=== PATIENT | female | born 1935 | race Caucasian/White ===

== ENCOUNTER → 2017-08-16 | Outpatient (CLI) | payer OTHER | LOC: BMCIMAGING 16:05 | PROVIDERS: ATTEND Family Medicine | DX: Z13.89 Encounter for screening for other disorder (principal); G89.28 Other chronic postprocedural pain; Z86.711 Personal history of pulmonary embolism ==

== ENCOUNTER 2017-08-24 01:31 | Observation (INO) | payer OTHER ==
[2017-08-24] MEDS ORDERED: NS 500 ML IV ONE (01:48)
[2017-08-24] MEDS ORDERED: NITROGLYCERIN 0.4 MG BTL SL PRN ×2 (01:48→04:33)
[2017-08-24] MEDS ORDERED: ASPIRIN 81 MG CHEWABLE TAB PO ONE ×2 (01:48→01:50)
--- NOTE | 2017-08-24 01:48 | EDPHY ---
H & P Stated Complaint: chest pressure, sob Time Seen by Provider: 08/24/17 01:48 HPI/ROS: HPI CHIEF COMPLAINT: Chest pressure HISTORY OF PRESENT ILLNESS: 82-year-old female, history of hypertension, hyperlipidemia, obesity, history of a PE, presents emergency room with chest pressure. Patient states around 9:00 p.m. Last night she developed chest pressure. Describes a discomfort in her chest as pressure. Denies any radiation of pain denies arm or jaw pain, denies neck pain or back pain. She does state she has some associated shortness of breath with this. She is visiting her daughter here in [place] from [place]. She arrives by private vehicle stating she does have 4/10 chest pressure substernal. Nonradiating. Denies pleuritic pain or hemoptysis. Past Medical History: Hypertension, hyperlipidemia, diabetes, PE, UTI, obesity , carotid disease, oxygen at night Past Surgical History: Carotid endarterectomy Social History: Lives in [place] denies daily use of drugs alcohol tobacco Family History: Noncontributory ROS REVIEW OF SYSTEMS: A comprehensive 10 point review of systems is otherwise negative aside from elements mentioned in the history of present illness. Exam Constitutional elderly, no acute distress, triage nursing summary reviewed, vital signs reviewed, awake/alert. Eyes normal conjunctivae and sclera, EOMI, PERRLA. HENT normal inspection, atraumatic, moist mucus membranes, no epistaxis, neck supple/ no meningismus, no raccoon eyes. Respiratory clear to auscultation bilaterally, normal breath sounds, no respiratory distress, no wheezing. Cardiovascular rate normal, regular rhythm, no murmur, no edema, distal pulses normal. Gastrointestinal soft, non-tender, no rebound, no guarding, normal bowel sounds, no distension, no pulsatile mass. Genitourinary no CVA tenderness. Musculoskeletal no midline vertebral tenderness, full range of motion, no calf swelling, no tenderness of extremities, no meningismus, good pulses, neurovascularly intact. Skin pink, warm, & dry, no rash, skin atraumatic. Neurologic awake, alert and oriented x 3, AAOx3, moves all 4 extremities equally, motor intact, sensory intact, CN II-XII intact, normal cerebellar, normal vision, normal speech. Psychiatric normal mood/affect. Heme/Lymph/Immune no lymphadenopathy. Differential diagnosis includes but is not limited to: ACS, atypical chest pain , pneumothorax, pneumonia, pulmonary embolism, aortic dissection, congestive heart failure, tumor, musculoskeletal pain, esophageal pain, GERD, peptic ulcer disease, pancreatitis Medical Decision Making: Plan for this patient IV establishment with full color television console monitor obtain EKG to rule out acute coronary syndrome, full-dose aspirin, dose of nitroglycerin to see if this helps with her chest pressure, chest x-ray, D-dimer, re-evaluate. Re-evaluation: EKG interpretation by me on record in [facility] system. Impression time of EKG 1:56 a.m., this is sinus rhythm rate of 82 T-wave abnormality noted V1 V2 V3 T-wave flattening V4 V5 V6 no ST elevation no significant ST depression. 0222: Patient D-dimer elevated. In the setting of chest pain and shortness of breath will proceed with CT angiogram of the chest rule out PE. She does have a history of PE. Not on anticoagulation. CT angiogram of the chest shows no evidence of PE. Called to me by Dr. Cruz. 0258: Will admit patient to the hospital service for further evaluation of chest pain. Recommend serial enzymes. No evidence of acute coronary syndrome at this time. No evidence of PE. Additionally patient will need to work with case management about setting up home oxygen. She is post be on oxygen at night at did not bring her oxygen from [place]. She is due to stay here till September 02. Source: Patient - Medical/Surgical History Hx Diabetes: Yes Hx Cardiac Disease: Yes Other PMH: chronic pain. arthritis. PE. HTN. depression. afib. CAD. cholecystectomy - Social History Smoking Status: Former smoker Constitutional: Initial Vital Signs Temperature (C) 36.5 C 08/24/17 01:37 Heart Rate 95 08/24/17 01:37 Respiratory Rate 20 08/24/17 01:37 Blood Pressure 136/80 H 08/24/17 01:37 O2 Sat (%) 92 08/24/17 01:37 O2 (L/minute) 2 Allergies/Adverse Reactions: nystatin Allergy (Intermediate, Verified 12/02/15 16:23) Hives Sulfa (Sulfonamide Antibiotics) Allergy (Intermediate, Verified 12/02/15 16:23) Hives atenolol Allergy (Verified 08/24/17 01:37) rofecoxib [From Vioxx] Allergy (Verified 08/24/17 01:37) emycin Allergy (Intermediate, Uncoded 12/02/15 16:23) Hives zpack Allergy (Mild, Uncoded 12/02/15 16:23) gi upset Home Medications: Medication Instructions Recorded ALPRAZolam [Xanax 0.25 MG (*)] 0.25 mg PO BID 12/02/15 Glimepiride [Amaryl] 4 mg PO DAILY 12/02/15 Hydrochlorothiazide [HCTZ (*)] 25 mg PO DAILY 12/02/15 Metoclopramide [Reglan 5 mg (*)] 5 mg PO BID 12/02/15 Oxybutynin Chloride [Ditropan] 5 mg PO DAILY 12/02/15 traZODone [traZODONE 100MG (*)] 100 mg PO HS 12/02/15 ALPRAZolam [Xanax 0.5 MG (*)] 0.5 mg PO BID PRN tab 08/24/17 Aspirin [Aspirin 81mg (*)] 81 mg PO DAILY 08/24/17 C/E/Zn/Cu/OM3/DHA/EPA/LUT/ZEAX 1 each PO BID 08/24/17 [Preservision Areds 2 Softgel] Calcium Carb W/Vit D [Calcium Carb 500 mg PO DAILY 08/24/17 W/Vit D 500/200 (*)] Citalopram Hydrobromide [Celexa] 40 mg PO DAILY 08/24/17 Fluticasone Nasal [Flonase Nasal 1 sprays NASAL BID 08/24/17 [place]] Gemfibrozil [Lopid 600 MG (*)] 600 mg PO DAILY 08/24/17 Insulin Glargine [Lantus 100 8 units SC DAILY ml 08/24/17 UNITS/ML (*)] Insulin Glargine,Hum.rec.anlog 7 unit SQ HS 08/24/17 [Lantus Solostar] Lisinopril [Zestril 20 mg (*)] 20 mg PO DAILY 08/24/17 Magnesium Oxide [Magnesium Oxide 400 mg PO DAILY 08/24/17 400 mg (*)] Methocarbamol [Robaxin 750 mg (*)] 750 mg PO TID PRN 08/24/17 Multivitamins [Multivitamin (*)] 1 each PO DAILY 08/24/17 [place]-3 Fatty Acids [Fish Oil 1000 1,000 mg PO DAILY 08/24/17 mg (*)] amLODIPine BESYLATE [Norvasc 10 mg 10 mg PO DAILY 08/24/17 (*)] Medical Decision Making - Diagnostics Imaging Results: Imaging Impressions Chest/Thorax CTA 08/24/17 02:22 Impression: 1. No evidence of pulmonary embolic disease. 2. Nodule of the right lobe of the thyroid which could be followed up with thyroid ultrasound as clinically indicated. 3. Mild cardiac enlargement and coronary arterial calcifications 4. See above report for additional findings. The study was performed as an emergency on-call case and discussed by telephone with Dr. Stevens at 0300 hours. The final interpretation is concordant with the original communication. - Data Points Laboratory Results: Laboratory Results 08/24/17 01:58 08/24/17 01:58 Medications Given: Discontinued Medications Acetaminophen (Tylenol) 650 mg PO Q4HRS PRN PRN Reason: Pain, Mild/Fever, Can Take PO Stop: 02/20/18 03:32 Last Admin: 08/24/17 09:23 Dose: 650 mg Alprazolam (Xanax) 0.25 mg PO BID [facility] Stop: 02/20/18 11:29 Last Admin: 08/24/17 12:13 Dose: Not Given Amlodipine Besylate (Norvasc) 10 mg PO DAILY [facility] Stop: 02/20/18 11:29 Last Admin: 08/24/17 11:52 Dose: 10 mg Aspirin (Aspirin) 324 mg PO EDNOW ONE Stop: 08/24/17 01:49 Last Admin: 08/24/17 01:50 Dose: 324 mg Aspirin (Aspirin) 324 mg PO EDNOW ONE Stop: 08/24/17 01:51 Last Admin: 08/24/17 01:54 Dose: Not Given Aspirin (Aspirin) 81 mg PO DAILY [facility] Stop: 02/20/18 11:29 Last Admin: 08/24/17 12:14 Dose: Not Given Calcium Carbonate (Tums) 500 mg PO TID PRN PRN Reason: Indigestion Stop: 02/20/18 09:48 Last Admin: 08/24/17 10:08 Dose: 500 mg Hydrochlorothiazide (Hydrochlorothiazide) 25 mg PO DAILY [facility] Stop: 02/20/18 11:29 Last Admin: 08/24/17 11:52 Dose: 25 mg Sodium Chloride (Ns) 500 mls @ 1,000 mls/hr IV EDNOW ONE PRN Reason: Protocol Stop: 08/24/17 02:17 Last Admin: 08/24/17 02:54 Dose: 500 mls Insulin Human Lispro (Humalog Lispro) 0 unit SC TIDMEAL MARAL PRN Reason: Protocol Stop: 02/20/18 07:59 Last Admin: 08/24/17 13:22 Dose: Not Given Lidocaine/Diphenhydramine/Alumin/Mg (Maalox/Diphenhydramine/Lido) 5 ml PO ONCE ONE Stop: 08/24/17 04:29 Last Admin: 08/24/17 05:17 Dose: 5 ml Lisinopril (Zestril) 20 mg PO DAILY [facility] Stop: 02/20/18 11:29 Last Admin: 08/24/17 11:52 Dose: 20 mg Metoclopramide HCl (Reglan) 5 mg PO BID [facility] Stop: 02/20/18 11:29 Last Admin: 08/24/17 12:14 Dose: Not Given Point of Care Test Results: Chemistry 08/24/17 02:01 POC Troponin I 0.02 ng/mL ng/mL (0.00-0.08) Departure - Departure Disposition: [facility] Acute Clinical Impression: Abnormal EKG Chest pain Qualifiers: Chest pain type: unspecified Qualified Code(s): R07.9 - Chest pain, unspecified Condition: Fair
[2017-08-24] MEDS ORDERED: ASPIRIN 81 MG CHEWABLE TAB ONE (01:49)
--- NOTE | 2017-08-24 01:58 | CPEKG ---
Heart Rate: 82 RR Interval: 732 P-R Interval: 160 QRSD Interval: 100 QT Interval: 408 QTC Interval: 477 P [place]: 28 QRS [place]: 7 T Wave [place]: -12 EKG Severity - BORDERLINE ECG - EKG Impression: SINUS RHYTHM EKG Impression: BORDERLINE T ABNORMALITIES, DIFFUSE LEADS Electronically Signed By: Keith Bryant 25-Aug-2017 06:55:12
[2017-08-24 02:07] LABS: PLATELET COUNT 357 10^3/uL (150-400)
[2017-08-24 02:15] LABS: INR 0.96 (0.83-1.16)
[2017-08-24] MEDS ORDERED: IOPAMIDOL (ISOVUE 370) 100 ML BTL IV ONE (02:32)
[2017-08-24] MEDS ORDERED: ACETAMINOPHEN 325 MG TAB PO PRN (03:33)
[2017-08-24] MEDS ORDERED: ONDANSETRON 4 MG/2 ML VIAL IVP PRN (03:33)
[2017-08-24] MEDS ORDERED: HYDROCODONE/APAP 5/325 TAB PO PRN (03:33)
[2017-08-24] MEDS ORDERED: MBX SOLN 30 ML BOTTLE PO ONE (04:28)
--- NOTE | 2017-08-24 04:48 | PDGENHP ---
History and Physical - Chief Complaint Chest pressure and dyspnea - History of Present Illness Source-patient provides history appears reliable. EMR was reviewed and case discussed with ED provider. HPI-this is a very pleasant 82-year-old female with past medical history significant for HTN, dm 2, KRAIG on CPAP and oxygen, remote history of PE no longer on anticoagulation, carotid artery stenosis, GERD who presents emergency department today with her daughter for new onset of chest pain starting approximately 9:00 p.m.. Patient reports that she was just lying in bed when she developed this lower sternal chest pressure and discomfort. Earlier in the day time she had been experiencing some reflux symptoms. She also has a chronic nonproductive dry cough related to her reflux. She denies any fevers or chills. No nausea or abdominal pain otherwise. In patient normally takes Zantac for control of her reflux symptoms. She was previously on omeprazole but was discontinued by her PCP. Patient reports that she has had a history of normal stress test but it has been sometime since her last stress was completed maybe 10 years ago. Patient denies any recent history of anginal-type symptoms. His she denies any radiating pain. The positive dyspnea. She has had some increased lower extremity edema with recent travel from [place] to [place] to visit with her daughter. In the next week patient and her daughter will be traveling by car North to [place] and subsequently [place]. Patient reports that she did not bring her supplemental oxygen with her although she does have her CPAP she does not have a portable concentrator by her report. Patient's initial evaluation with EKG and troponin and neck were found to be negative. Patient has been placed on some supplemental oxygen and reports that her symptoms have improved. History Information - Allergies/Home Medication List Allergies/Adverse Reactions: nystatin Allergy (Intermediate, Verified 12/02/15 16:23) Hives Sulfa (Sulfonamide Antibiotics) Allergy (Intermediate, Verified 12/02/15 16:23) Hives atenolol Allergy (Verified 08/24/17 01:37) rofecoxib [From Vioxx] Allergy (Verified 08/24/17 01:37) emycin Allergy (Intermediate, Uncoded 12/02/15 16:23) Hives zpack Allergy (Mild, Uncoded 12/02/15 16:23) gi upset Home Medications: ALPRAZolam [Xanax 0.25 MG (*)] 0.25 mg PO BID 12/02/15 [Last Taken Unknown] Atorvastatin Calcium [Lipitor 20 mg (*)] 20 mg PO DAILY 12/02/15 [Last Taken Unknown] Citalopram [CeleXA] 20 mg PO 12/02/15 [Last Taken Unknown] Glimepiride [Amaryl] 4 mg PO 12/02/15 [Last Taken Unknown] Hydrochlorothiazide [HCTZ (*)] 25 mg PO DAILY 12/02/15 [Last Taken Unknown] Hydrocodone/APAP 5/325 [[place] 5/325 (*)] 1 tab PO 12/02/15 [Last Taken Unknown] Metformin HCl [Fortamet] 500 mg PO DAILY 12/02/15 [Last Taken Unknown] Metoclopramide [Reglan 5 mg (*)] 5 mg PO 12/02/15 [Last Taken Unknown] Oxybutynin Chloride [Ditropan 5mg (RX)] 5 mg PO 12/02/15 [Last Taken Unknown] amLODIPine BESYLATE [Amlodipine Besylate] 10 mg PO 12/02/15 [Last Taken Unknown] traZODone [traZODONE 100MG (*)] 100 mg PO 12/02/15 [Last Taken Unknown] I have personally reviewed and updated: family history, medical history, social history, surgical history - Past Medical History Additional medical history: HTN, HLD, AFib, coronary artery stenosis on the left >50%, cholecystectomy, dm 2, history UTI, KRAIG on CPAP and nocturnal oxygen , history of peptic ulcer disease, GERD, macular degeneration, chronic pain, degenerative disc disease, history of PE status post completion of anticoagulation, depression. - Surgical History Additional surgical history: Carotid endarterectomy on the right, cholecystectomy, right rotator cuff repair, right total knee arthroplasty, laminectomy, cataract extraction and lens placement bilaterally. - Family History Additional family history: 3 brothers with history of cardiac disease 1 with a CABG,. Mother with history CVA. Father with history CAD. - Social History Smoking Status: Former smoker Alcohol Use: None Drug Use: None Additional social history: Patient recently arrived from [place]. She is will be traveling length of the son had Review of Systems Review of Systems: ROS: 10pt was reviewed & negative except for what was stated in HPI & below Constitutional: Reports: chills (Patient reports some chills earlier in the day time however a.c. Was running 1 daughter returned home.). Denies: fever, weakness EENMT: Reports: no symptoms Cardiac: Reports: chest pain (See HPI), edema (Dependent edema). Denies: lightheadedness, syncope Respiratory: Reports: cough (Persistent nonproductive cough.), shortness of breath, other (See HPI.) Gastrointestinal: Reports: other (Reflux symptoms, patient also reports some dark loose stools no blood.). Denies: vomitting, black stools, rectal bleeding , nausea Genitourinary: Reports: no symptoms Muscolosketal: Reports: back pain, joint pain, muscle pain Skin: Reports: other (Persistent rash to chest between both breasts.) Neurological: Reports: no symptoms. Denies: headache, tremors, weakness Hematologic/Lymphatic: Reports: no symptoms Physical Exam Physical Exam: Temp Pulse Resp BP Pulse Ox 36.6 C 70 18 164/80 H 98 08/24/17 04:18 08/24/17 04:18 08/24/17 04:18 08/24/17 04:18 08/24/17 04:18 O2 (L/minute) 2 Lab Data & Imaging Review 08/24/17 01:58 08/24/17 01:58 WBC 6.83 10^3/uL (3.80-9.50) 08/24/17 01:58 RBC 4.56 10^6/uL (4.18-5.33) 08/24/17 01:58 Hgb 12.7 g/dL (12.6-16.3) 08/24/17 01:58 Hct 38.7 % (38.0-47.0) 08/24/17 01:58 MCV 84.9 fL (81.5-99.8) 08/24/17 01:58 MCH 27.9 pg (27.9-34.1) 08/24/17 01:58 MCHC 32.8 g/dL (32.4-36.7) 08/24/17 01:58 RDW 14.1 % (11.5-15.2) 08/24/17 01:58 Plt Count 357 10^3/uL (150-400) 08/24/17 01:58 MPV 9.2 fL (8.7-11.7) 08/24/17 01:58 Neut % (Auto) 54.8 % (39.3-74.2) 08/24/17 01:58 Lymph % (Auto) 23.6 % (15.0-45.0) 08/24/17 01:58 [place] % (Auto) 14.8 % (4.5-13.0) H 08/24/17 01:58 Eos % (Auto) 5.4 % (0.6-7.6) 08/24/17 01:58 Baso % (Auto) 1.0 % (0.3-1.7) 08/24/17 01:58 Nucleat RBC Rel Count 0.0 % (0.0-0.2) 08/24/17 01:58 Absolute Neuts (auto) 3.74 10^3/uL (1.70-6.50) 08/24/17 01:58 Absolute Lymphs (auto) 1.61 10^3/uL (1.00-3.00) 08/24/17 01:58 Absolute Monos (auto) 1.01 10^3/uL (0.30-0.80) H 08/24/17 01:58 Absolute Eos (auto) 0.37 10^3/uL (0.03-0.40) 08/24/17 01:58 Absolute Basos (auto) 0.07 10^3/uL (0.02-0.10) 08/24/17 01:58 Absolute Nucleated RBC 0.00 10^3/uL (0-0.01) 08/24/17 01:58 Immature Gran % 0.4 % (0.0-1.1) 08/24/17 01:58 Immature Gran # 0.03 10^3/uL (0.00-0.10) 08/24/17 01:58 PT 13.0 SEC (12.0-15.0) 08/24/17 01:58 INR 0.96 (0.83-1.16) 08/24/17 01:58 APTT 41.1 SEC (23.0-38.0) H 08/24/17 01:58 D-Dimer 3.82 ug/mLFEU (0.00-0.50) H 08/24/17 01:58 Sodium 140 mEq/L (135-145) 08/24/17 01:58 Potassium 3.5 mEq/L (3.3-5.0) 08/24/17 01:58 Chloride 103 mEq/L (97-110) 08/24/17 01:58 Carbon Dioxide 28 mEq/l (22-31) 08/24/17 01:58 Anion Gap 9 mEq/L (8-16) 08/24/17 01:58 BUN 21 mg/dL (7-23) 08/24/17 01:58 Creatinine 0.9 mg/dL (0.6-1.0) 08/24/17 01:58 Estimated GFR 60 08/24/17 01:58 Glucose 199 mg/dL (70-100) H 08/24/17 01:58 Calcium 9.9 mg/dL (8.5-10.4) 08/24/17 01:58 Magnesium 1.5 mg/dL (1.6-2.3) L 08/24/17 01:58 Total Bilirubin 0.5 mg/dL (0.1-1.4) 08/24/17 01:58 Conjugated Bilirubin 0.4 mg/dL (0.0-0.5) 08/24/17 01:58 Unconjugated Bilirubin 0.1 mg/dL (0.0-1.1) 08/24/17 01:58 AST 25 IU/L (14-46) 08/24/17 01:58 ALT 31 IU/L (9-52) 08/24/17 01:58 Alkaline Phosphatase 93 IU/L (38-126) 08/24/17 01:58 POC Troponin I 0.02 ng/mL (0.00-0.08) 08/24/17 02:01 NT-Pro-B Natriuret Pep 91 pg/mL (0-450) 08/24/17 01:58 Total Protein 7.1 g/dL (6.3-8.2) 08/24/17 01:58 Albumin 4.1 g/dL (3.5-5.0) 08/24/17 01:58 Lipase 30 IU/L (23-300) 08/24/17 01:58 Imaging Review: Chest x-ray-image reviewed myself report is still pending compared to his chest x-ray from 2016 showing cardiomegaly, hyperinflation of lungs and eventration of the diaphragm on the right largely unchanged compared to previous chest x- ray. No acute consolidations. Preliminary report on CTA chest No PE Mild cardiomegaly w/o pulmonary edema No significant change from CT NOV 2015 Called to ER @ 0300 hrs Visualized and Interpreted Chest x-ray results: Yes Chest X-Ray results: no infiltrate Visualized and Interpreted imaging results: Yes EKG additional interpertation: NSR 80s, T wave inversion anterior leads, III, t wave flattening lateral leads. q wave inferior leads. III,aVF unchanged from 2016. QTc 477. Assessment & Plan Assessment: HPI-this is a very pleasant 82-year-old female with past medical history significant for HTN, dm 2, KRAIG on CPAP and oxygen, remote history of PE no longer on anticoagulation, carotid artery stenosis, GERD #Chest pain (Acute) - DD X reflux, esophagitis, less likely ACS or angina versus ruled out PE and pneumonia. Will try a GI cocktail. Will trend cardiac enzymes repeated this morning. If negative anticipate proceeding ahead with a nuclear stress test as patient reports that she would not be able to ambulate on a treadmill given her history of right total knee arthroplasty. Nitroglycerin p.r.n.. #dyspnea - patient without any noted hypoxia or tachycardia or tachypnea since arrival to the ED. She does wear her CPAP in did bring it with her on this trip. She however does not have a portable concentrator brought with her from [place]. Patient is at increased elevation and reports increasing dyspnea with exertion and increasing fatigue. She currently is feeling better with supplemental oxygen. Will plan to do an exertional room air challenge in the morning to see if patient may require securing oxygen for her while she is in travel. chronic medical issues #DM II - ADA diet and sliding scale insulin. resume metformin after 48 hrs after contrast, glimepiride. #benign essential HTN - BP acceptable. resume patient HCTZ, lisinopril, amlodipine when med rec available. #HLD - on gemfibrozil.fish oil. #hx afib now in sinus #KRAIG on CPAP - o2 at hs. CPAP if patient stays additional day. #GERD/hx PUD - continue zantac when med rec avail. trial of gi cocktail now. #macular degen #chronic pain - methocarbamol prn. no longer on chronic narcotic therapy. #anxiety - xanax prn. FEN - NPO after snack on floor. electrolyte replacement/monitoring. PPX - SCDs. anticoagulation oif patient should stay additional day. COR - FULL Dispo - Patient admitted to observation status on the PCU for close cardiac monitoring.
[2017-08-24] MEDS ORDERED: D50W 25 GM/50 ML VIAL IVP PRN (05:06)
[2017-08-24] MEDS ORDERED: ALPRAZolam 0.5 MG TAB PO PRN (07:41)
--- NOTE | 2017-08-24 08:31 | ASMTLACE ---
MICHELLE Comorbidities - select Answers: Diabetes (uncontrolled or all that apply controlled) Opioid dependence / Chronic pain Peptic ulcer disease Other Notes: HTN; HLD; Hx of PE # of Emergency department Answers: 1-2 visits in the last 6 months Social determinants Answers: Mental health diagnosis (anxiety, depression, pers onality disorders, etc.) Score: 12 Date Signed: 08/24/2017 08:30 AM Electronically Signed By:Meche Hidalgo
[2017-08-24] MEDS ORDERED: CALCIUM CARBONATE 500 MG CHEWABLE TAB PO PRN (09:49)
--- NOTE | 2017-08-24 09:51 | PDHOMEO2F ---
Home Oxygen Face to Face Home Orders: I certify that a physician or a nurse practitioner or physician's health care assistant has had a [id number] encounter with this patient on the date of this order due to the diagnosis listed, which relates to the primary reason the patient requires home oxygen. Alternative treatments have been tried, or considered, and deemed ineffective. It is anticipated that supplemental oxygen will result in improvement with treatment. Home oxygen qualifying diagnosis: sleep apnea Home oxygen secondary diagnosis: hypoxia SpO2 on room air (%): 86 Frequency of home oxygen needed: continuous Home oxygen liters per minute: 2 Home oxygen delivery device: nasal cannula Concentrator: Yes E-tanks for mobility and back up: Yes If ordering portable O2, is the patient mobile in the home?: Yes I certify that, based on these findings, the home oxygen is medically necessary for this patient for the following length of time. Length of time home oxygen needed: 1 month
[2017-08-24 11:13] VITALS: BP 162/72
[2017-08-24] MEDS ORDERED: METHOCARBAMOL 750 MG TAB PO PRN (11:29)
[2017-08-24] MEDS ORDERED: LISINOPRIL 20 MG TAB PO SCH (11:30)
[2017-08-24] MEDS ORDERED: HYDROCHLOROTHIAZIDE 25 MG TAB PO SCH (11:30)
[2017-08-24] MEDS ORDERED: ASPIRIN 81 MG CHEWABLE TAB PO SCH (11:30)
[2017-08-24] MEDS ORDERED: ALPRAZolam 0.25 MG TAB PO SCH (11:30)
[2017-08-24] MEDS ORDERED: METOCLOPRAMIDE 5 MG TAB PO SCH (11:30)
[2017-08-24] MEDS: INSULIN LISPRO 100 UNIT/ML SC SCH ×2 (11:52→13:22)
--- NOTE | 2017-08-24 14:25 | GDS ---
[f rep st] DISCHARGE SUMMARY HISTORY OF PRESENT ILLNESS: An 82-year-old female with a history of acid reflux, hypertension, atria l fibrillation, and KRAIG on CPAP and oxygen, presenting with abdominal discomfort. She was lying in b ed at 8:30 last night and developed a lump feeling in her epigastric region. This did not radiate to her arm, back or neck. There was no associated diaphoresis or nausea. She reports a lot of "stomac h issues." She normally takes Zantac, which usually controls her symptoms, but it did not this time. She denies chest pain at baseline. She is here traveling from [place], at her daughter's. She used to wear CPAP and oxygen at night but did not bring it with her, so has been without it for the past w makah. This morning, the pain was relieved with Tums. HOSPITAL COURSE BY PROBLEM: 1. Acute substernal chest pain: Differential includes reflux esophagitis and PE. CTA was negative for pulmonary embolism. EKG and troponins were non-ischemic. Suspect this is actually GERD as she d id have relief with Tums this morning. Not having her oxygen may have contributed to some of her sym ptoms. I have arranged for oxygen at discharge. 2. Thyroid nodule. This is an incidental finding. Recommend ultrasound as an outpatient. 3. Reflux. Continue Zantac. 4. Diabetes. Resume glargine, metformin, and glimepiride. 5. Benign hypertension. It was elevated this morning. Resumed her home diuretic, lisinopril and No rvasc, with improvement of blood pressure. 6. Hyperlipidemia, gemfibrozil and fish oil. 7. History of atrial fibrillation, now in normal sinus rhythm. 8. KRAIG, on CPAP. Have arranged for O2 at discharge. 9. GERD/PUD. Continue Zantac. 10. Macular degeneration. Follow up as an outpatient. 11. Chronic pain. Continue home medications. 12. Anxiety, p.r.n. Xanax. DISPOSITION: Patient is stable for discharge. FOLLOWUP: 1. Primary care physician. 2. If symptoms persist, can consider an outpatient stress test. 3. Thyroid ultrasound to follow up on nodule. MEDICATIONS: No new medications. PHYSICAL EXAMINATION: VITAL SIGNS: Today, temperature 36.8, blood pressure 162/72. Heart rate is in the 70s, respirations 16, 96% on 2 L. GENERAL: Obese, sitting up in bed, in no acute distress. TARSHA NT: PERRLA. Moist mucous membranes. CV: Regular rate and rhythm. LUNGS: Clear. No crackles or wheezing. ABDOMEN: Soft, nontender. Positive bowel sounds. : No Gutierrez. MUSCULOSKELETAL: 5/5 upper and lower extremity strength. NEURO: 2 through 12 intact. PSYCH: Alert and oriented x3. Time spent on discharge: Greater than 30 minutes at bedside with patient counseling on followup and oxygen. /[id number]/MODL
--- NOTE | 2017-08-24 14:43 | ASDISCHSUM ---
Discharge Information Plan Status:Home with DME or Oxygen Medically Cleared to Leave:08/24/2017 Discharge Date:08/24/2017 CM D/C Disposition:Home, Routine, Self-Care ADT D/C Disposition:Home, Routine, Self-Care Projected Discharge Date:08/24/2017 Transportation at D/C:Family Discharge Delay Reason: Follow-Up Date:08/24/2017 Discharge Slot: Final Diagnosis: Placement Information Patient Contact Information Contact Name:RADHA Relationship:Daughter Address: Work Phone: City:[place] Alternate Phone: State/[place] [employer] [place] Email: Financial Information Financial Class:Medicare Advantage Plans Primary Plan Desc:DOM LERMA PPO MEDICARE Primary Plan Number:[id number] Secondary Plan Desc: Secondary Plan Number: Assessment Information LACE LACE Comorbidities - select Answers: Diabetes (uncontrolled or all that apply controlled) Opioid dependence / Chronic pain Peptic ulcer disease Other Notes: HTN; HLD; Hx of PE # of Emergency department Answers: 1-2 visits in the last 6 months Social determinants Answers: Mental health diagnosis (anxiety, depression, pers onality disorders, etc.) Score: 12 Date Signed: 08/24/2017 08:30 AM Electronically Signed By:Meche Hidalgo [facility] CM Progress Note CM Note CM Note Notes: Chart reviewed. Patient seen in rounds. Lives in [place], visiting daughter. Medically cleared for discharge to home with oxygen. No other needs identified at this time. CM available should needs arise. Plan: Home to daughters with oxygen. Date Signed: 08/24/2017 02:42 PM Electronically Signed By:Kiersten Roche RN Intervention Information
--- NOTE | 2017-08-24 17:21 | ECHO ---
[email or web address] [address] [address] Main: [phone] Fax: Transthoracic Echocardiogram Name: NAVEED BURGOS MR#: [id number] Study Date: 08/24/2017 Study Time: 08:41 AM Date of : 1935 Age: 82 year(s) Height: 160 cm (63 in.) Weight: 97.52 kg (215 lb.) BSA: 1.99 m2 Gender: Female Examination: Echo Indication: Chest Pain Image Quality: Contrast: Requested by: Aissatou Moore BP: 157 mmHg/89 mmHg Heart Rate: Rhythm: Indication: Chest Pain Procedure Staff Head Operator: Cy Rogers RDCS Reading Physician: Gabriel Rangel MD Requesting Provider: Conclusions: Normal size left ventricle. Mild concentric LV hypertrophy. Normal global systolic LV function. EF is 63 %. No regional wall motion abnormality. Grade 1 diastolic dysfunction (abnormal relaxation). Elevated left ventricular filling pressures.. Normal RV function. The pulmonary artery pressure is normal. There is pericardial fat. Measurements: Chambers Valvular Assessment AV/MV Valvular Assessment TV/PV Normal Normal Normal Name Value Range Name Value Range Name Value Range Ao Anya (MM): 3.3 cm (2.2 cm-3.7 AV Vmax: 1.36 m/s (1 m/s-1.7 TR Vmax: 1.61 mm/s ( - ) cm) m/s) TR PGmax: 10 mmHg ( - ) IVSd (2D): 0.9 cm (0.6 cm-1.1 AV maxP mmHg ( - ) syst. PAP: 15 mmHg ( - ) cm) LVOT Vmax: 0.92 m/s (0.7 m/s-1.1 PV Vmax: 0.91 m/s (0.6 m/s-0.9 LVDd (2D): 4.4 cm (3.9 cm-5.3 m/s) m/s) cm) MV E Vmax: 0.67 m/s ( - ) PV PGmax: 3 mmHg ( - ) LVDs (2D): 2.9 cm (2.1 cm-4 MV A Vmax: 1.00 m/s ( - ) cm) MV E/A: 0.67 ( - ) LVPWd (2D): 1.3 cm ( - ) MV meanP mmHg ( - ) LVEF (2D): 63 (>=54 %) Continued Measurements: Chambers Valvular Assessment AV/MV Valvular Assessment TV/PV Name Value Name Value Name Value Patient: NAVEED BURGOS Study Date: 08/24/2017 Page 1 of 2 08:41 AM LADs Lon.0 cm MV E' Septal: 0.03 m/s CVP (est.): 5 mmHg LA Area: 15.5 cm2 MV E/E' Septal: 19.50 LA Volume: 42 ml MV E/E' Lateral: 19.50 LA Volume Index: 21.1 ml/m2 MV VTI: 33.30 cm Findings: Left Ventricle: Normal size left ventricle. Mild concentric LV hypertrophy. Normal global systolic LV function. EF is 63 %. No regional wall motion abnormality. Grade 1 diastolic dysfunction (abnormal relaxation). Elevated left ventricular filling pressures.. Right Ventricle: Normal size right ventricle. Normal RV function. Left Atrium: The left atrium is normal in size. Right Atrium: The right atrium is normal in size. Mitral Valve: Mild mitral valve leaflet calcification is present. Mild mitral annular calcification. Trivial mitral valve regurgitation. No mitral stenosis is present. Mean mitral gradien of 2 mmHg. Aortic Valve: The aortic valve is tri-leaflet. The aortic valve is normal in appearance and function. Tricuspid Valve: The tricuspid valve is normal in appearance and function. Trivial tricuspid valve regurgitation. The pulmonary artery pressure is normal. Pulmonic Valve: The pulmonic valve is normal in appearance and function. Aorta: The aorta is normal. Pericardium: No pericardial effusion. There is pericardial fat. No pleural effusion. (No Signature Object) Patient: NAVEED BURGOS Study Date: 08/24/2017 Page 2 of 2 08:41 AM [id number]
[2017-08-24] MEDS ORDERED: traZODone 100 MG TAB PO SCH (21:00)
[2017-08-24] MEDS ORDERED: PRESERVISION AREDS2 FORMULA EYE VIT 1 EACH PO SCH (21:00)
[2017-08-24] MEDS ORDERED: INSULIN GLARGINE 100 UNITS/ML SYRINGE SC SCH (21:00)
[2017-08-24] MEDS ORDERED: FLUTICASONE NASAL 120 SPRAYS/16 GM MDI EACHNARE SCH (21:00)
[2017-08-24] MEDS ORDERED: INSULIN LISPRO 100 UNIT/ML SC SCH (21:00)
[2017-08-25] MEDS ORDERED: CITALOPRAM 20 MG TAB PO SCH (09:00)
[2017-08-25] MEDS ORDERED: INSULIN GLARGINE 100 UNITS/ML SYRINGE SC SCH (09:00)
[2017-08-25] MEDS ORDERED: OXYBUTYNIN CHLORIDE 5 MG TAB PO SCH (09:00)
[2017-08-25] MEDS ORDERED: CALCIUM CARB W/VIT D 500 MG TAB PO SCH (09:00)
[2017-08-25] MEDS ORDERED: GLIMEPIRIDE 2 MG TAB PO SCH (09:00)
[2017-08-25] MEDS ORDERED: MAGNESIUM OXIDE 400 MG TAB PO SCH (09:00)
[2017-08-25] MEDS ORDERED: MULTIVITAMINS 1 EACH TAB PO SCH (09:00)
[2017-08-25] MEDS ORDERED: GEMFIBROZIL 600 MG TAB PO SCH (09:00)
[2017-08-25] MEDS ORDERED: OMEGA-3 FATTY ACIDS 1,000 MG CAP PO SCH (09:00)
== END 2017-08-24 15:01 | disposition home or self-care (01) ==
LOC: F2W 04:28
PROVIDERS: ADMIT Family Medicine; ATTEND Internal Medicine
DX: R07.9 Chest pain, unspecified (principal); R06.09 Other forms of dyspnea; K21.9 Gastro-esophageal reflux disease without esophagitis; E86.9 Volume depletion, unspecified; I48.91 Unspecified atrial fibrillation; G47.33 Obstructive sleep apnea (adult) (pediatric); E04.1 Nontoxic single thyroid nodule; I10 Essential (primary) hypertension; E11.9 Type 2 diabetes mellitus without complications; I25.10 Atherosclerotic heart disease of native coronary artery without angina pectoris; E78.5 Hyperlipidemia, unspecified; G89.29 Other chronic pain; F41.9 Anxiety disorder, unspecified; F32.9 Major depressive disorder, single episode, unspecified; H35.30 Unspecified macular degeneration; Z79.84 Long term (current) use of oral hypoglycemic drugs; Z87.440 Personal history of urinary (tract) infections; Z86.711 Personal history of pulmonary embolism; Z82.49 Family history of ischemic heart disease and other diseases of the circulatory system; Z82.3 Family history of stroke; Z96.651 Presence of right artificial knee joint; Z88.2 Allergy status to sulfonamides
CPT/HCPCS: 71045; 71275; 93005; 93306; 97166; 97535; G0378; J1815; Q9967; 84484-PO